=== PATIENT | female | born 1995 | race Caucasian/White ===

== ENCOUNTER 2020-11-23 13:38 | Emergency (ER) | payer OTHER ==
[~2020-11-23] VITALS: Ht 149.9 cm; Wt 54.4 kg
--- NOTE | 2020-11-23 13:38 | NUR ---
BROUGHT BACK TO BED #1 AND TRIAGED. REPORT GIVEN TO MINDY
[2020-11-23 13:44] VITALS: BP_SYST 130
--- NOTE | 2020-11-23 13:45 | NUR ---
Pt came to ER for sore throat x1 day states her doctor sent her to ER to be checked out. Pt resting in [facility] at this time, VSS, no complaints, requesting work note.
--- NOTE | 2020-11-23 13:50 | NUR ---
ER at bedside examining patient.
[2020-11-23] MEDS ORDERED: IBUP-1969 PO (14:18)
[2020-11-23] MEDS ORDERED: PRED50TA PO (14:18)
--- NOTE | 2020-11-23 14:37 | NUR ---
Patient given written and verbal discharge instructions and verbalizes understanding. ER MD discussed with patient the results and treatment provided. Patient in stable condition. ID arm band removed. Rx of Ibuprofen and Prednisone given. Patient educated on pain management and to follow up with PMD. Pain Scale 1/10. Opportunity for questions provided and answered. Medication side effect fact sheet provided.
== END 2020-11-23 14:37 | disposition home or self-care (01) ==
LOC: SED 13:38
DX: J02.9 Acute pharyngitis, unspecified (principal)
CPT/HCPCS: 99283

== ENCOUNTER 2022-03-04 13:14 | Emergency (ER) | payer MEDICAID ==
[~2022-03-04] VITALS: Ht 152.4 cm; Wt 57.2 kg
[~2022-03-04 13:14] MED LIST: IBUP-1969 PO; PRED50TA PO
[2022-03-04 13:56] VITALS: BP_SYST 111
[2022-03-04] MEDS ORDERED: HYDR28CR28 TP (15:48)
== END 2022-03-04 16:00 | disposition home or self-care (01) ==
LOC: SED 13:14
DX: L25.9 Unspecified contact dermatitis, unspecified cause (principal); H57.11 Ocular pain, right eye; Z79.899 Other long term (current) drug therapy
CPT/HCPCS: 99282